=== PATIENT | male | born 2000 | race Caucasian/White ===

== ENCOUNTER 2020-05-24 09:51 | Emergency (ER) | payer BC, SELFPAY ==
[2020-05-24 10:21] VITALS: BP 115/70; PULSE 87; RESP 20; TEMP 36.9; O2SAT 99
--- NOTE | 2020-05-24 10:22 | ED.GENADULT ---
HPI - General Adult General Chief complaint: Nausea/Vomiting/Diarrhea Stated complaint: VOMITING/DIARRHEA Time Seen by Provider: 05/24/20 10:47 Source: patient and RN notes reviewed Mode of arrival: ambulatory Limitations: no limitations History of Present Illness HPI narrative: 19-year-old male presents with complaints of diarrhea, vomiting, and nausea for the past 3 days. Ebenezer reports no vomiting in the past 24 hours but continues to have diarrhea and nausea. No treatment. Ebenezer reports significant other with similar symptoms 2 days prior, only lasted 1.5 days. Nausea and diarrhea without abdominal pain or cramping. Exacerbating factors consist of eating and drinking. LBM today 06:20am, brown liquid stool without blood, 05/23/2098-5-5ftimwl stools, 05/22/20-too many to count watery stools. Denies fever or chills. Denies headache, dizziness, back pain, and dysuria. Tolerating po intake well. Remains active. The patient reports he have not been diagnosed with COVID-19. The patient reports he is not waiting for the results of a COVID-19 lab test. The patient reports he do not have weakness or fatigue. The patient reports he do not have a new or worsening cough or shortness of breath. Denies chest pain. The patient reports he do not have any rhinorrhea, congestion, loss of taste or smell, and sore throat. Denies recent traveling. Denies concerns for COVID-19 or exposures been home with limited outdoor exposure except for essential household needs, school, and return home. At this time, patient is not suspected of having COVID-19. Some parts of this dictation were generated by voice recognition software and may contain typographical and/or grammatical inaccuracies. Related Data Allergies Allergy/AdvReac Type Severity Reaction Status Date / Time bee venom protein (honey bee) Allergy Severe Hives / Verified 03/11/19 12:27 Red Face Review of Systems Review of Systems: Narrative: CONSTITUTIONAL: Denies fever, chills, sweats. EYES: Denies visual changes, redness, discharge. ENT: Denies rhinorrhea, congestion, sore throat, otalgia. CARDIOVASCULAR: Denies chest pain, palpitations, edema. RESPIRATORY: Denies dyspnea, wheezing, cough. GASTROINTESTINAL: Denies abdominal pain, decrease appetite. Complains of diarrhea, nausea, and vomiting. GENITOURINARY: Denies dysuria, hematuria, abnormal discharge. SKIN: Denies rash or itching. MUSCULOSKELETAL: Denies acute back pain, joint pain, or myalgia. NEUROLOGIC: Denies numbness or focal weakness. PSYCHIATRIC: Denies anxiety or depression. All systems reviewed & are unremarkable except as noted in HPI and below. [facility] Past Medical History Medical History (Updated 05/25/20 @ 00:00 by Katty Ribeiro) No significant past medical history Surgical History Surgical History (Updated 05/24/20 @ 10:59 by TREMAINE Brand) No significant past surgical history Family History Family History (Updated 05/24/20 @ 10:59 by TREMAINE Brand) Father Unknown family medical history Mother Unknown family medical history Social History Social History (Updated 05/24/20 @ 11:00 by TREMAINE Brand) Smoking status: Never smoker Tobacco type: cigarettes Second hand tobacco smoke exposure: No Alcohol intake: never Substance use: current Substance use type: marijuana Living arrangements: with family Occupation/Education: student Gender identity (if verbalized by the patient): Male Sexual Orientation (if Verbalized by the Patient): Straight or Heterosexual Comments At time of signature, I have reviewed and agree with nursing past medical, surgical, social, and family history. Please see nursing chart for further information. There is no relevant family history pertinent to the presenting complaint. Exam Narrative: Exam Narrative: GENERAL: This is a well-nourished, well-developed patient, in no apparent distress. Talks in full sentences without de
== END 2020-05-24 11:08 | disposition home or self-care (01) ==
PROVIDERS: Emergency Provider Nurse Practitioner Family
DX: K52.9 Noninfective gastroenteritis and colitis, unspecified (principal)
CPT/HCPCS: 99213; G0463